=== PATIENT | female | born 1960 | race Caucasian/White ===

== ENCOUNTER → 2016-03-13 | Day surgery (SDC) | payer BC ==
[2016-03-06 11:47] VITALS: Ht 154.9 cm; Wt 54.5 kg
[~2016-03-13] VITALS: Ht 154.9 cm; Wt 54.5 kg
[~2016-03-13] MED LIST: AMOX875T PO; ATROPINE SULFATE 0.1 MG/ML 5ML SYR IV PRN; DEXAMETHASONE SOD INJ 4 MG/ML VIAL ONE; EpHEDrine SULFATE INJ 50 MG/ML AMP IV PRN; FENTANYL CITRATE INJ 50 MCG/1 ML 2 ML VIAL IV PRN; FENTANYL CITRATE INJ 50 MCG/1 ML 2 ML VIAL ONE; FERRIC SUBSULFATE 8 GM VIAL ONE; FLUMAZENIL 0.1 MG/1 ML 10 ML VIAL IV PRN; HYDROmorphone INJ 2 MG/ML SYR/VIAL IV PRN; IBUP-103 PO; IBUPROFEN 600 MG TAB PO PRN; KETO0.5S33 OPB; KETOROLAC TROMETHAMINE 30 MG/ML VIAL IV. PRN; KETOROLAC TROMETHAMINE 30 MG/ML VIAL ONE; LABETALOL HCL IV 5 MG/ML 20ML IV PRN; LACTATED RINGER'S 1000ML 1,000 ML IV SCH; LIDOCAINE HCL 2% 2 ML VIAL (20MG/ML) ONE; MEPERIDINE HCL 25 MG/ML CARP IV PRN; MIDAZOLAM HCL 1 MG/ML 2ML VIAL ONE; MoRPHine SULFATE 2 MG/ML CARP IV PRN; MoRPHine SULFATE 4 MG/ML 1 ML CARP\\VIAL IV PRN; NALOXONE HCL 0.4 MG/1 ML VIAL/CARP IV PRN; ONDANSETRON INJ 2 MG/ML 2 ML VIAL IV PRN; ONDANSETRON INJ 2 MG/ML 2 ML VIAL ONE; OXYC-57 PO; OXYCODONE/ACETAMINOPHEN 5-325 TAB PO PRN; PHENYLEPHRINE 100MCG/ML 5ML SYR IV PRN; POVIDONE-IODINE OP SOLN 30 ML BTL ONE; PRED1SUS3 OPB; PROPOFOL IV EMULSION 10 MG/ML 20 ML VIAL IV ONE; SERT-234 PO; SODIUM CHLORIDE 0.9% 1000ML 1,000 ML IV SCH
--- NOTE | 2016-03-13 11:49 | History & Physical Bridge - [place] ---
H&P Re-Evaluation Bridge Note: I have examined the patient, reviewed the History & Physical and in the interval since the performance of the History & Physical I have noted the following changes of clinical significance: No changes noted
--- NOTE | 2016-03-13 12:29 | [facility] Post Operative Brief Note ---
Immediate Operative Summary Operative Date Mar 13, 2016. Pre-Operative Diagnosis Atypical Squamous Cells of Undetermined Significance; SILVIA I, High Risk HPV Post-Operative Diagnosis same Procedure(s) Performed Cold Knife Cone Biopsy Surgeon Dr. Edna Multani Concrete Batcher Surgeon(s) 0 Estimated Blood Loss 25CC Findings nl appearing cx with TZ within the os. Specimens A. Cervical Cone Biopsy--suture @ 12:00 Drains none Anesthesia lma Complication(s) None Disposition Recovery Room / PACU
--- NOTE | 2016-03-13 12:32 | Discharge Instructions ---
Discharge Instructions Visit Reason for Visit: Atypical Squamous Cells Of Undetermined Significan Discharge Discharge Diagnosis / Problem: s/p cold knife conization of the cervix Discharge Goals Goal(s): Specific goals Activity Recommendations Activity Limitations: per Instructions/Follow-up section Anesthesia . Post Anesthesia Instructions: If you have had General Anesthesia or IV Sedation: * Do not drive today. * Resume driving when surgeon permits. * Do not make important decisions or sign legal documents today. * Call surgeon for: 1. Temperature elevations greater than 101 degrees F. 2. Uncontrollable pain. 3. Excessive bleeding. 4. Persistent nausea and vomiting. 5. Medication intolerance (nausea, vomiting or rash). * For nausea and vomiting use only clear liquids such as: tea, soda, bouillon until nausea subsides, then gradually increase diet as tolerated. * If you have any concerns or questions, call your surgeon's office. If physician is unavailable and it is an emergency, call 911 or go to the nearest emergency room. . Instructions / Follow-Up Instructions / Follow-Up ACTIVITY RECOMMENDATIONS: * Avoid tampons, douching, hot tubs, pools, and intercourse for 4 weeks until cleared by MD. * May shower as usual. * No strenuous activity for 1 week. After 1 week, you may do anything you feel like doing (driving and sports are okay). SPECIAL CARE INSTRUCTIONS: Special Diet: * Mild nausea may occur in the immediate post-operative period. * Take clear liquids such as tea, cola or bouillon until all nausea has subsided; you may then resume your normal diet. Special Care: * Light bleeding and vaginal spotting can last from a few days to 3-4 weeks. Call your doctor if bleeding becomes heavier than the heaviest part of your period. * Check your temperature twice a day for one week. If it goes above 100.4 degrees Fahrenheit (38.0 Celsius), notify your doctor. * Call your doctor's office for an appointment for 4 weeks after your surgery. FOLLOW-UP VISIT: Call your doctor's office for an appointment for 4 weeks after your surgery. Diet Recommendations Recommended Home Diet: no limitations, resume previous diet Procedures Procedures Performed: Cold Knife Cone Biopsy Pending Studies Studies pending at discharge: no Medical Emergencies . Who to Call and When: Medical Emergencies: If at any time you feel your situation is an emergency, please call 911 immediately. . Non-Emergent Contact Non-Emergency issues call your: Insulation Board Head Saw Operator . . "Provider Documentation" section prepared by Elizabeth Multani. PA Drug Monitoring Program Search Results: patient reviewed within database
--- NOTE | 2016-03-13 12:36 | Medical Student: [facility] ---
Immediate Operative Summary Operative Date Mar 13, 2016. 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 Surgeon Dr. Multani Slat Twister Surgeon(s) None Estimated Blood Loss 25 mL Findings Cervix visualized with Transformation Zone within os. Specimens Conal excision of cervix including internal and external os. Suture at 12:00. Drains None Anesthesia General Complication(s) None Disposition Recovery Room / PACU
--- NOTE | 2016-03-13 12:39 | Medical Student: [facility] ---
Immediate Operative Summary Operative Date Mar 13, 2016. Pre-Operative Diagnosis Persistent SILVIA I with high-risk HPV, serotypes 18 and 45 Post-Operative Diagnosis Same Procedure(s) Performed Cold knife cervical conization Surgeon Elizabeth Multani MD Public Service Officer Surgeon(s) None Estimated Blood Loss 25mL Findings Normal-appearing cervix Migration of transformation zone to the endocervix Fluids (cc crystalloids) 700mL normal saline Specimens Cervical cone biopsy with suture at 12 o'clock Drains none Anesthesia General anesthesia via laryngeal mask intubation Complication(s) None Disposition Recovery Room / PACU
--- NOTE | 2016-03-13 13:05 | OPERATIVE REPORT ---
DATE OF OPERATION: 03/13/2016 PREOPERATIVE DIAGNOSES: 1. Persistent SILVIA 1. 2. 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 POSTOPERATIVE DIAGNOSIS: Same. PROCEDURE: Cold knife conization. SURGEON: Dr. Multani. ANESTHESIA: General per laryngeal mask. ESTIMATED BLOOD LOSS: 25 mL. FLUIDS: 700 mL of IV fluid. URINE OUTPUT: Small amount of clear yellow urine drained from the bladder at the end of the procedure. INDICATIONS: The patient is postmenopausal a 55-year-old woman who I have been following for an abnormal Pap smear for over 5 years. It has been persistently ASCUS SILVIA 1 with positive HPV for 18/45. Approximately a year and a half ago she had a LEEP and has had persistently abnormal Paps since then and continues to have persistent HPV 18/45 positivity, presents today for cold knife conization for definitive treatment. FINDINGS: Normal vagina and normal external female genitalia. Normal Bartholin, urethra and Portia glands. The cervix appears grossly normal. The transformation zone is within the cervical os. COMPLICATIONS: None. DRAINS: None. DISPOSITION: To recovery room in stable condition. DESCRIPTION OF PROCEDURE: The patient was taken to the operating room where she was identified verbally and by bracelet. She was placed in dorsal supine position where general anesthesia was induced without difficulty. She was then placed in dorsal lithotomy position in [facility]-cane stirrups and prepped and draped in normal sterile fashion. Timeout was held identifying correct patient, procedure and positioning. The bladder was drained of urine and exam under anesthesia revealed a small anteverted uterus, no adnexal mass was appreciated. A weighted speculum was placed in the posterior vagina. A Mirza retractor was placed in the anterior vagina. Then using a right angle 15 blade, a cone-shaped portion of the cervix was removed. A silk suture was placed at 12 o'clock to serve as a means for identification and orientation. Bleeding edges were attended to with Bovie electrocautery and then using a 3-0 Vicryl, the cervix was circumferentially sewed together using a running interrupted suture. This was tied at 12 o'clock. There was some bleeding at the base that was attended to with Bovie electrocautery, some aspirin BILINGUAL CUSTOMER SERVICE was placed into the space and hemostasis was noted to be excellent. The procedure was thus terminated. All sponge, lap and needle counts were correct x2. The patient tolerated the procedure well and was taken to the recovery room in stable condition. I attest to the content of the Intraoperative Record and any orders documented therein. Any exceptio ns are noted below.
[2016-03-13 13:13] VITALS: BP 151/77; PULSE 61; TEMP 36.6; O2SAT 100
--- NOTE | 2016-03-13 13:16 | Anesthesia Progress Nt - [facility] ---
Anesthesia Post Op Note Date & Time Mar 13, 2016 at 13:15 Vital Signs Pain Intensity: 0 Vital Signs Past 12 Hours Date Time Temp Pulse Resp B/P Pulse Ox O2 Delivery O2 Flow Rate FiO2 03/13/16 13:13 36.6 61 16 151/77 100 Room Air 03/13/16 12:55 53 14 03/13/16 12:55 36.8 03/13/16 12:55 53 14 100 03/13/16 12:54 131/89 03/13/16 12:50 56 12 03/13/16 12:50 55 12 139/63 100 03/13/16 12:45 52 21 100 03/13/16 12:45 53 21 03/13/16 12:44 129/109 03/13/16 12:40 46 14 100 03/13/16 12:40 46 14 03/13/16 12:39 128/88 03/13/16 12:35 56 14 03/13/16 12:35 56 14 100 03/13/16 12:34 36.4 62 14 136/96 100 Diffusion Mask 03/13/16 11:16 37.2 64 16 137/87 100 Room Air Notes Mental Status: alert / awake / arousable, participated in evaluation Pt Amnestic to Procedure: Yes Nausea / Vomiting: adequately controlled Pain: adequately controlled Airway Patency, RR, SpO2: stable & adequate BP & HR: stable & adequate Hydration State: stable & adequate Anesthetic Complications: no major complications apparent
== END | disposition home or self-care (01) ==
LOC: X.SURG 11:05
PROVIDERS: ATTEND Obstetrics & Gynecology
DX: N87.0 Mild cervical dysplasia (principal); A63.0 Anogenital (venereal) warts; N95.2 Postmenopausal atrophic vaginitis; M35.00 Sjogren syndrome, unspecified; H26.9 Unspecified cataract; F32.9 Major depressive disorder, single episode, unspecified

== ENCOUNTER → 2016-05-22 | Outpatient (CLI) | payer BC ==
[~2016-05-22] MED LIST changes: -ATROPINE SULFATE 0.1 MG/ML 5ML SYR IV PRN; -DEXAMETHASONE SOD INJ 4 MG/ML VIAL ONE; -EpHEDrine SULFATE INJ 50 MG/ML AMP IV PRN; -FENTANYL CITRATE INJ 50 MCG/1 ML 2 ML VIAL IV PRN; -FENTANYL CITRATE INJ 50 MCG/1 ML 2 ML VIAL ONE; -FERRIC SUBSULFATE 8 GM VIAL ONE; -FLUMAZENIL 0.1 MG/1 ML 10 ML VIAL IV PRN; -HYDROmorphone INJ 2 MG/ML SYR/VIAL IV PRN; -IBUPROFEN 600 MG TAB PO PRN; -KETOROLAC TROMETHAMINE 30 MG/ML VIAL IV. PRN; -KETOROLAC TROMETHAMINE 30 MG/ML VIAL ONE; -LABETALOL HCL IV 5 MG/ML 20ML IV PRN; -LACTATED RINGER'S 1000ML 1,000 ML IV SCH; -LIDOCAINE HCL 2% 2 ML VIAL (20MG/ML) ONE; -MEPERIDINE HCL 25 MG/ML CARP IV PRN; -MIDAZOLAM HCL 1 MG/ML 2ML VIAL ONE; -MoRPHine SULFATE 2 MG/ML CARP IV PRN; -MoRPHine SULFATE 4 MG/ML 1 ML CARP\\VIAL IV PRN; -NALOXONE HCL 0.4 MG/1 ML VIAL/CARP IV PRN; -ONDANSETRON INJ 2 MG/ML 2 ML VIAL IV PRN; -ONDANSETRON INJ 2 MG/ML 2 ML VIAL ONE; -OXYCODONE/ACETAMINOPHEN 5-325 TAB PO PRN; -PHENYLEPHRINE 100MCG/ML 5ML SYR IV PRN; -POVIDONE-IODINE OP SOLN 30 ML BTL ONE; -PROPOFOL IV EMULSION 10 MG/ML 20 ML VIAL IV ONE; -SODIUM CHLORIDE 0.9% 1000ML 1,000 ML IV SCH
[2016-05-22 16:27] LABS: URINE APPEARANCE CLEAR (CLEAR); URINE BILIRUBIN NEG (NEG); URINE COLOR YELLOW; URINE NITRITE NEG (NEG); URINE SPECIFIC GRAVITY 1.019 (1.000-1.030); UROBILINOGEN NEG (NEG)
[2016-05-22 16:33] LABS: MANUAL MICROSCOPIC REQUIRED? NO; REVIEW REQ? NO
== END | disposition home or self-care (01) ==
LOC: C.LABSPEC 16:12
PROVIDERS: ATTEND Physician Assistant
DX: R10.2 Pelvic and perineal pain (principal)

== ENCOUNTER 2016-05-23 10:28 | Inpatient (IN) | payer BC ==
[2016-05-23] VITALS (7 sets, daily range): BP systolic 99–120; BP diastolic 59–82; PULSE 51–84; TEMP 36.5–37.4; O2SAT 95–98; Ht 154.9 cm; Wt 55.7 kg
[~2016-05-23] VITALS: Ht 154.9 cm; Wt 55.7 kg
[~2016-05-23 10:28] MED LIST changes: -AMOX875T PO; -IBUP-103 PO
[2016-05-23] MEDS ORDERED: ONDANSETRON INJ 2 MG/ML 2 ML VIAL IV STA (10:51)
[2016-05-23] MEDS ORDERED: SODIUM CHLORIDE 0.9% 1000ML 1,000 ML IV STA (10:51)
--- NOTE | 2016-05-23 11:01 | EMERGENCY ROOM VISIT NOTE ---
History Report prepared by Flores: Kae Davey Under the Supervision of: Dr. Brandon Fang D.O. First contact with patient: 10:42 Chief Complaint: GROIN PAIN Stated Complaint: PAIN IN GRION AREA History of Present Illness The patient is a 56 year old female who presents to the Emergency Room with complaints of right lower quadrant abdominal pain that began yesterday. The patient states that she initially saw her bulk mail technician yesterday and had an ultrasound. She has not heard back with results. She was put on Amoxicillin yesterday in case she had an infection from a cone biopsy performed this past February. After appointment, she had a coughing fit and subsequently noticed a hard mass in her right pelvic area last evening. It has not changed since then. This morning, the patient went to [facility] [employer] and was referred to the ED. Currently, she complains of nausea and a decreased appetite. She has been dry heaving when she tries to eat over the past few days. She notes that she had flu like symptoms including fevers and chills last week which have improved. Denies vomiting, leg pain or swelling, or other complaints. Source of History: patient Onset: yesterday Position: abdomen (RLQ) Timing: other (persistent) Associated Symptoms: + nausea, No vomiting Note: Other symptoms: pelvic mass, decreased appetite Review of Systems See HPI for pertinent positives & negatives. A total of 10 systems reviewed and were otherwise negative. Past Medical & Surgical Medical Problems: (1) Incarcerated right inguinal hernia (2) Sicca syndrome Family History No pertinent family history stated. Social History Smoking Status: Never Smoker Marital Status: Occupation Status: employed Current/Historical Medications Scheduled Amoxicillin & Pot Clavulanate (Augmentin 875-125 mg), 1 TAB PO TID Sertraline (Zoloft), 100 MG PO QAM Allergies Coded Allergies: Procaine (Verified Allergy, Unknown, FINGER NAIL BEDS TURNED BLUE, 05/23/16 ) Physical Exam Vital Signs Date Time Temp Pulse Resp B/P Pulse Ox O2 Delivery O2 Flow Rate FiO2 05/23/16 15:34 37 71 16 126/85 98 Room Air 05/23/16 14:12 68 16 129/82 98 Room Air 05/23/16 13:36 82 05/23/16 12:17 72 18 127/82 94 Room Air 05/23/16 12:15 75 05/23/16 10:35 36.7 68 16 124/92 100 Room Air Physical Exam GENERAL: Patient is awake, alert, and in no acute distress. Patient is resting comfortably and showing no signs of anxiety EYES: The conjunctivae are clear. The pupils are round and reactive. EARS, NOSE, MOUTH AND THROAT: The nose is without any evidence of any deformity. Mucous membranes are moist tongue is midline NECK: The neck is nontender and supple. RESPIRATORY: Normal respiratory effort is noted there is no evidence of wheezing rhonchi or rales CARDIOVASCULAR: Regular rate and rhythm noted there no murmurs rubs or gallops normal S1 normal S2 GASTROINTESTINAL: The abdomen is soft. There was right lower quadrant tenderness to palpation. No guarding or rigidity noted. There was also a palpable mass in the right inguinal canal. It was not reducible. The mass was very tender. MUSCULOSKELETAL/EXTREMITIES: There is no evidence of gross deformity full range of motion is noted in the hips and shoulders SKIN: There is no obvious evidence of any rash. There are no petechiae, pallor or cyanosis noted. NEUROLOGIC: Patient is awake alert and oriented x3 Medical Decision & Procedures ER Provider Diagnostic Interpretation: Radiology results as stated below per my review and radiologist interpretation: ABDOMEN AND PELVIS CT WITHOUT CONTRAST CT DOSE: 399.96 mGycm HISTORY: Right lower quadrant pain right lower quad pain, right inguinal mass TECHNIQUE: Multiaxial CT images of the abdomen and pelvis were performed without contrast. COMPARISON STUDY: None. FINDINGS: Lung bases are clear. Liver spleen and pancreas are unremarkable. Kidneys negative for hydronephrosis. Bowel pattern is nonobstructive. Focal right inguinal hernia containing is short segment loop of bowel. This does not appear to be incarcerated. Several reactive nodes right to lesser extent left inguinal region measuring up to 9 mm. Bulky adenopathy is not appreciated. IMPRESSION: A focal right inguinal hernia accounting for the clinically palpable mass. 2. This appears to contain a short segment loop of bowel although there is no evidence for incarceration or obstruction. 3. Study is otherwise negative. Electronically signed by: Navdeep Tabares M.D. 05/23/2016 11:45 AM Dictated Date/Time: 05/23/2016 11:43 AM Laboratory Results 05/23/16 11:00 Red Blood Count 4.46, Mean Corpuscular Volume 91.9, Mean Corpuscular Hemoglobin 32.1, Mean Corpuscular Hemoglobin Concent 34.9, Mean Platelet Volume 10.6, Neutrophils (%) (Auto) 73.1, Lymphocytes (%) (Auto) 19.4, Monocytes (%) (Auto) 6.3, Eosinophils (%) (Auto) 0.9, Basophils (%) (Auto) 0.2, Neutrophils # (Auto) 6.16, Lymphocytes # (Auto) 1.64, Monocytes # (Auto) 0.53, Eosinophils # (Auto) 0.08, Basophils # (Auto) 0.02 05/23/16 11:00 Test 05/23/16 11:00 05/23/16 11:05 White Blood Count 8.44 K/uL (4.8-10.8) Red Blood Count 4.46 M/uL (4.2-5.4) Hemoglobin 14.3 g/dL (12.0-16.0) Hematocrit 41.0 % (37-47) Mean Corpuscular Volume 91.9 fL (80-100) Mean Corpuscular Hemoglobin 32.1 pg (25-34) Mean Corpuscular Hemoglobin Concent 34.9 g/dl (32-36) Platelet Count 228 K/uL (130-400) Mean Platelet Volume 10.6 fL (7.4-10.4) Neutrophils (%) (Auto) 73.1 % Lymphocytes (%) (Auto) 19.4 % Monocytes (%) (Auto) 6.3 % Eosinophils (%) (Auto) 0.9 % Basophils (%) (Auto) 0.2 % Neutrophils # (Auto) 6.16 K/uL (1.4-6.5) Lymphocytes # (Auto) 1.64 K/uL (1.2-3.4) Monocytes # (Auto) 0.53 K/uL (0.11-0.59) Eosinophils # (Auto) 0.08 K/uL (0-0.5) Basophils # (Auto) 0.02 K/uL (0-0.2) RDW Standard Deviation 46.3 fL (36.4-46.3) RDW Coefficient of Variation 13.7 % (11.5-14.5) Immature Granulocyte % (Auto) 0.1 % Immature Granulocyte # (Auto) 0.01 K/uL (0.00-0.02) Prothrombin Time 10.0 SECONDS (9.0-12.0) Prothromb Time International Ratio 0.9 (0.9-1.1) Activated Partial Thromboplast Time 25.5 SECONDS (21.0-31.0) Partial Thromboplastin Ratio 1.0 Anion Gap 8.0 mmol/L (3-11) Est Creatinine Clear Calc Drug Dose 61.6 ml/min Estimated GFR () 101.8 Estimated GFR (Non- 87.9 BUN/Creatinine Ratio 11.9 (10-20) Calcium Level 9.1 mg/dl (8.5-10.1) Total Bilirubin 0.6 mg/dl (0.2-1) Direct Bilirubin 0.2 mg/dl (0-0.2) Aspartate Amino Transf (AST/SGOT) 25 U/L (15-37) Alanine Aminotransferase (ALT/SGPT) 42 U/L (12-78) Alkaline Phosphatase 76 U/L (45-117) Total Protein 7.6 gm/dl (6.4-8.2) Albumin 4.0 gm/dl (3.4-5.0) Lipase 296 U/L (73-393) Human Chorionic Gonadotropin, Qual NEG (NEG) Urine Color DK YELLOW Urine Appearance CLEAR (CLEAR) Urine pH 5.5 (4.5-7.5) Urine Specific [place] 1.033 (1.000-1.030) Urine Protein NEG (NEG) Urine Glucose (UA) NEG (NEG) Urine Ketones 1+ (NEG) Urine Occult Blood NEG (NEG) Urine Nitrite NEG (NEG) Urine Bilirubin NEG (NEG) Urine Urobilinogen NEG (NEG) Urine Leukocyte Esterase NEG (NEG) Laboratory results per my review. Medications Administered Medications (Trade) Dose Ordered Sig/Chu Route Start Time Stop Time Status Last Admin Dose Admin Sodium Chloride (Nss 1000ml) 1,000 ml @ 999 mls/hr Q1H1M STAT IV 05/23/16 10:51 05/23/16 11:51 DC 05/23/16 11:08 999 MLS/HR Ondansetron HCl (Zofran Inj) 4 mg NOW STAT IV 05/23/16 10:51 05/23/16 10:52 DC 05/23/16 11:09 4 MG Ondansetron HCl (Zofran Inj) 4 mg Q4H PRN IV 05/23/16 13:30 4 13:29 05/23/16 14:11 4 MG Morphine Sulfate (MoRPHine SULFATE INJ) 4 mg Q1H PRN IV 05/23/16 13:30 06/06/16 13:29 05/23/16 14:11 4 MG ED Course 1046: The patient was evaluated in room A10. A complete history and physical examination were performed. 1051: Ordered Zofran Inj 4 mg IV, NSS 1000 ml @ 999 mls/hr IV. 1159: I reassessed the patient and updated her on results. 1201: I discussed the case with Sarah Munoz PA-C - General Surgery. The patient will be taken to the OR. 1205: Upon reevaluation, the patient is resting comfortably. I discussed results and treatment plan with the patient. She verbalizes agreement and understanding Medical Decision Prior records/ancillary studies reviewed. Triage Nursing notes reviewed. The patient's history was concerning for abdominal pain. Differential diagnosis: Etiologies such as appendicitis, diverticulitis, PUD, biliary pathology, UTI, pancreatitis, obstruction, mesenteric ischemia, aortic pathology, infections, inflammatory bowel disease, renal colic, as well as others were entertained. The patient is a 56-year-old female who presented to the emergency department for an evaluation of lower abdominal pain and swelling in her right groin. The patient was found have signs of an inguinal hernia on physical exam. I was not able to reduce this. The patient was evaluated by the on-call general surgical group. She was felt to be a good candidate for surgical management. The patient did not appear to have severe pain I do not feel this is strangulated at this time I just feel it is unable to be reduced. I discussed this with the general surgical group. They've evaluated the patient in the emergency department and feel that she may be a good candidate for surgical management today in the she spontaneously reduced. I discussed this plan with the patient and she was agreeable to this plan. The patient was treated with IV fluids and IV antiemetics. Consults Time Called: 1155 Consulting Physician: Sarah Munoz PA-C - General Surgery Returned Call: 1201 I discussed the case with her. Impression Primary Impression: Right inguinal hernia Additional Impression: Right lower quadrant abdominal pain Scribe Attestation The scribe's documentation has been prepared under my direction and personally reviewed by me in its entirety. I confirm that the note above accurately reflects all work, treatment, procedures, and medical decision making performed by me. Departure Information Dispostion Being Evaluated By Surgeon Referrals No Doctor, Assigned (PCP) Patient Instructions My [facility] Problem Qualifiers
[2016-05-23] MEDS ORDERED: AMOX875T PO (11:12)
[2016-05-23 11:17] LABS: URINE APPEARANCE CLEAR (CLEAR); URINE BILIRUBIN NEG (NEG); URINE COLOR DK YELLOW; URINE NITRITE NEG (NEG); URINE PH 5.5 (4.5-7.5); URINE SPECIFIC GRAVITY 1.033 (1.000-1.030); UROBILINOGEN NEG (NEG)
[2016-05-23 11:21] LABS: BASO % 0.2 %; BASO ABS # 0.02 K/uL (0-0.2); COMPLETE YES; EOS % 0.9 %; IG% 0.1 %; LYMPH % 19.4 %; LYMPH ABS # 1.64 K/uL (1.2-3.4); MEAN CELL VOLUME 91.9 fL (80-100); MEAN CORPUSCULAR HEMOGLOBIN 32.1 pg (25-34); MEAN CORPUSCULAR HGB CONC 34.9 g/dl (32-36); MEAN PLATELET VOLUME 10.6 fL (7.4-10.4); MONO % 6.3 %; NEUT % 73.1 %; PLATELET COUNT 228 K/uL (130-400); RED BLOOD COUNT 4.46 M/uL (4.2-5.4); WHITE BLOOD COUNT 8.44 K/uL (4.8-10.8)
[2016-05-23 11:22] LABS: MANUAL MICROSCOPIC REQUIRED? NO; REVIEW REQ? NO
[2016-05-23 11:26] LABS: INR 0.9 (0.9-1.1)
[2016-05-23 11:29] LABS: BUN/CREATININE RATIO 11.9 (10-20); CALCIUM 9.1 mg/dl (8.5-10.1); CREATININE 0.75 mg/dl (0.60-1.20); POTASSIUM 3.5 mmol/L (3.5-5.1)
[2016-05-23 11:42] LABS: PREG INTERNAL NEGATIVE QC NEG CLEAR BACKGROUND; PREG INTERNAL POSITIVE QC POS CONTROL LINE
--- NOTE | 2016-05-23 11:47 | DIAGNOSTIC IMAGING REPORT ---
ABDOMEN AND PELVIS CT WITHOUT CONTRAST CT DOSE: 399.96 mGycm HISTORY: Right lower quadrant pain right lower quad pain, right inguinal mass TECHNIQUE: Multiaxial CT images of the abdomen and pelvis were performed without contrast. COMPARISON STUDY: None. FINDINGS: Lung bases are clear. Liver spleen and pancreas are unremarkable. Kidneys negative for hydronephrosis. Bowel pattern is nonobstructive. Focal right inguinal hernia containing is short segment loop of bowel. This does not appear to be incarcerated. Several reactive nodes right to lesser extent left inguinal region measuring up to 9 mm. Bulky adenopathy is not appreciated. IMPRESSION: A focal right inguinal hernia accounting for the clinically palpable mass. 2. This appears to contain a short segment loop of bowel although there is no evidence for incarceration or obstruction. 3. Study is otherwise negative. Electronically signed by: Navdeep Tabares M.D. 05/23/2016 11:45 AM Dictated Date/Time: 05/23/2016 11:43 AM
--- NOTE | 2016-05-23 13:10 | History and Physical: Surg Cnt ---
History & Physical Date May 23, 2016. (Sarah Munoz ., MYRANDA) Chief Complaint Right Pelvic pain, lump (Sarah Munoz PA-C) History of Present Illness Yvette is a very pleasant 56 year-old female who presented to the emergency department this am with compaint of right groin pain and hard mass. Yvette states she just saw her Disability Manager yesterday and was started on Amoxicillin for possible cervical infection. Had a vaginal ultrasound and has not heard about results yet. Yvette also states she is getting over the flu and has been having coughing spells. States she returned to work yesterday after OBGYN appointment and had some coughing fits and when she got home noticed a mass in the right groin that was hard and painful. She went to urgent care this morning and advised her to come to the emergency department. Yvette denies of any history of hernias, denies of any abdominal surgery. Has had back and foot surgery. Otherwise healthy. Takes Zoloft. No other medications. Denies of any fever, chills, nausea, vomiting, vomiting blood, change in bowel habits, diarrhea, constipation, blood in stools, difficulty urinating, blood in urine, or abdominal pain. CT scan of abdomen and pelvis shows a right inguinal hernia with a small loop of bowel present. No evidence of incarceration on CT scan No leukocytosis, afebrile, vital signs stable. (Sarah Munoz ., MYRANDA) Past Medical/Surgical History Medical Problems: (1) Sicca syndrome (Sarah Munoz PA-C) Additional History Hepatic Disease: No Endocrine Disorder: No Kidney Disease: No Hypertension: No Heart Disease: No Bleeding Tendencies: No Infectious Diseases: No (Sarah Munoz PA-C) Allergies Coded Allergies: Procaine (Verified Allergy, Unknown, FINGER NAIL BEDS TURNED BLUE, 05/23/16 ) Home Medications Scheduled Amoxicillin & Pot Clavulanate (Augmentin 875-125 mg), 1 TAB PO TID Sertraline (Zoloft), 100 MG PO QAM Physical Examination Skin: warm/dry, no rash Eyes: normal inspection, sclerae normal Head: normocephalic, atraumatic Neck: trachea midline Respiratory/Chest: lungs clear, normal breath sounds, no respiratory distress Cardiovascular: regular rate, rhythm, no murmur Abdomen / GI: + pertinent finding (Right inguinal hernia present, lump on inpsecition. Hard lump on palpation and unable to reduce due to patients discomfort on multiple attempts by ER doctor and myself. NO overlying skin chagnes, erythema, or ecchymosis) Back: normal inspection Extremities: normal inspection Neurologic/Psych: alert, oriented x 3 Addiitonal Comments: ABDOMEN AND PELVIS CT WITHOUT CONTRAST CT DOSE: 399.96 mGycm HISTORY: Right lower quadrant pain right lower quad pain, right inguinal mass TECHNIQUE: Multiaxial CT images of the abdomen and pelvis were performed without contrast. COMPARISON STUDY: None. FINDINGS: Lung bases are clear. Liver spleen and pancreas are unremarkable. Kidneys negative for hydronephrosis. Bowel pattern is nonobstructive. Focal right inguinal hernia containing is short segment loop of bowel. This does not appear to be incarcerated. Several reactive nodes right to lesser extent left inguinal region measuring up to 9 mm. Bulky adenopathy is not appreciated. IMPRESSION: A focal right inguinal hernia accounting for the clinically palpable mass. 2. This appears to contain a short segment loop of bowel although there is no evidence for incarceration or obstruction. 3. Study is otherwise negative. (Sarah Munoz ., PA-C) Diagnosis Incarcerated Right Inguinal Hernia - Vital signs stable - no leukocytosis - not reducible on examination on multiple attempts - very painful on reducing (Sarah Munoz ., PA-C) Plan of Treatment Plan: Discussed with patient need for surgery given we are not able to reduce the hernia. Want to prevent any bowel strangulation since there is a loop of bowel present in the hernia. Discussed with patient the surgery and risks including bleeding, infection, injury to surrounding tissues, post op pain, nerve pain, post op seroma and hematoma Patient understands and consents to proceed Consent form signed. Patient discussed with Dr. Mcfarlane who will see and evaluate patient. (Sarah Munoz ., PA-C) I interviewed and examined this patient and I agree with the above note. She developed a bulge in the right inguinal area that is painfula and tender and CT shows small bowel loop in an inguinal hernia. It is not reducible. Will plan for surgical repair. (Navdeep Mcfarlane M.D.)
[2016-05-23] MEDS ORDERED: ONDANSETRON INJ 2 MG/ML 2 ML VIAL IV PRN ×2 (13:30→15:30)
[2016-05-23] MEDS ORDERED: MoRPHine SULFATE 2 MG/ML CARP IV PRN ×2 (13:30)
[2016-05-23] MEDS ORDERED: MoRPHine SULFATE 4 MG/ML 1 ML CARP\\VIAL IV PRN ×2 (13:30→17:00)
[2016-05-23] MEDS ORDERED: BUPIVACAINE 0.5 % 5 MG/1 ML MPF 30ML VIAL ONE (15:24)
[2016-05-23] MEDS ORDERED: NALOXONE HCL 0.4 MG/1 ML VIAL/CARP IV PRN (15:30)
[2016-05-23] MEDS ORDERED: ATROPINE SULFATE 0.1 MG/ML 5ML SYR IV PRN (15:30)
[2016-05-23] MEDS ORDERED: FENTANYL CITRATE INJ 50 MCG/1 ML 2 ML VIAL IV PRN (15:30)
[2016-05-23] MEDS ORDERED: PHENYLEPHRINE 100MCG/ML 5ML SYR IV PRN (15:30)
[2016-05-23] MEDS ORDERED: MEPERIDINE HCL 25 MG/ML CARP IV PRN (15:30)
[2016-05-23] MEDS ORDERED: EpHEDrine SULFATE INJ 50 MG/ML AMP IV PRN (15:30)
[2016-05-23] MEDS ORDERED: HYDROmorphone INJ 2 MG/ML SYR/VIAL IV PRN (15:30)
[2016-05-23] MEDS ORDERED: LABETALOL HCL IV 5 MG/ML 20ML IV PRN (15:30)
[2016-05-23] MEDS ORDERED: FLUMAZENIL 0.1 MG/1 ML 10 ML VIAL IV PRN (15:30)
[2016-05-23] MEDS ORDERED: CEFAZOLIN IV 2,000 MG/60 ML D5W IV ONE (15:34)
[2016-05-23] MEDS ORDERED: ROCURONIUM BROMID 50MG/5ML SYR ONE (15:53)
[2016-05-23] MEDS ORDERED: DEXAMETHASONE SOD INJ 4 MG/ML VIAL ONE (15:53)
[2016-05-23] MEDS ORDERED: PROPOFOL IV EMULSION 10 MG/ML 20 ML VIAL IV ONE (15:53)
[2016-05-23] MEDS ORDERED: LIDOCAINE HCL 2% 2 ML VIAL (20MG/ML) ONE (15:53)
[2016-05-23] MEDS ORDERED: ONDANSETRON INJ 2 MG/ML 2 ML VIAL ONE (15:53)
[2016-05-23] MEDS ORDERED: NEOSTIGMINE METHYLSULFATE 5 MG/5 ML SYR ONE (15:53)
[2016-05-23] MEDS ORDERED: GLYCOPYRROLATE INJ 0.2 MG/ML VIAL ONE (15:53)
[2016-05-23] MEDS ORDERED: FENTANYL CITRATE INJ 50 MCG/1 ML 2 ML VIAL ONE (15:54)
[2016-05-23] MEDS ORDERED: MIDAZOLAM HCL 1 MG/ML 2ML VIAL ONE (15:54)
[2016-05-23] MEDS ORDERED: EpHEDrine SULFATE 50MG/5ML SYR ONE (16:36)
[2016-05-23] MEDS ORDERED: ESMOLOL HCL 10 MG/ML 10 ML VIAL ONE (16:37)
[2016-05-23] MEDS ORDERED: KETOROLAC TROMETHAMINE 30 MG/ML VIAL ONE (16:41)
[2016-05-23] MEDS ORDERED: OXYCODONE/ACETAMINOPHEN 5-325 TAB PO PRN (17:00)
--- NOTE | 2016-05-23 17:04 | [facility] Post Operative Brief Note ---
Immediate Operative Summary Operative Date May 23, 2016. Pre-Operative Diagnosis Right incarcerated inguinal hernia Post-Operative Diagnosis Right incarcerated inguinal hernia Procedure(s) Performed Right Incarcerated Inguinal Hernia Repair Surgeon Dr. Mcfarlane Waterworks Supervisor Surgeon(s) Sarah Munoz PA-C Estimated Blood Loss 5ml Findings See dictation Specimens None per surgeon Drains None Anesthesia General Complication(s) None Disposition Recovery Room / PACU
--- NOTE | 2016-05-23 17:25 | Anesthesiology Progress Note ---
Anesthesia Post Op Note Date & Time May 23, 2016 at 17:25 Vital Signs Pain Intensity: 0 Vital Signs Past 12 Hours Date Time Temp Pulse Resp B/P Pulse Ox O2 Delivery O2 Flow Rate FiO2 05/23/16 17:14 36.4 92 16 119/72 100 Mask 10 05/23/16 15:34 37 71 16 126/85 98 Room Air 05/23/16 14:12 68 16 129/82 98 Room Air 05/23/16 13:36 82 05/23/16 12:17 72 18 127/82 94 Room Air 05/23/16 12:15 75 05/23/16 10:35 36.7 68 16 124/92 100 Room Air Notes Mental Status: alert / awake / arousable, participated in evaluation Pt Amnestic to Procedure: Yes Nausea / Vomiting: adequately controlled Pain: adequately controlled Airway Patency, RR, SpO2: stable & adequate BP & HR: stable & adequate Hydration State: stable & adequate Anesthetic Complications: no major complications apparent
[2016-05-23] MEDS: SODIUM CHLORIDE 0.9% 1000ML 1,000 ML IV SCH (19:15)
--- NOTE | 2016-05-24 02:24 | OPERATIVE REPORT ---
DATE OF OPERATION: 05/23/2016 PREOPERATIVE DIAGNOSIS: Incarcerated right inguinal hernia. POSTOPERATIVE DIAGNOSIS: Incarcerated right femoral hernia. PROCEDURE: Repair of incarcerated right inguinal hernia. SURGEON: Navdeep Mcfarlane MD RECREATIONAL SPECIALIST: Sarah Maria PA-C FINDINGS: The inguinal canal had no hernia within it. The defect was beneath the inguinal ligament near the femoral space. There was protruding peritoneum that was thickened and there were contents within that after I widened the femoral opening reduced easily. There was some preperitoneal fat that was protruding as well. I could not visualize any bowel within the hernia sac. TECHNIQUE: The patient was given a general anesthetic and the area was prepped and draped in usual sterile fashion. Right inguinal incision was made, carried down through the subcutaneous tissue to the fascia. It appeared as though this may have been coming through the external ring. I made a small incision in the left external oblique fascia and placed my finger into the canal. It was clear then this was a femoral hernia. That opening in the external oblique fascia was closed with a running 2-0 Vicryl. The preperitoneal fat and hernia sac were then away from the surrounding tissues using blunt cautery dissection where appropriate. I was then able to identify the circumference of the hernia defect. The preperitoneal fat was then away from the hernia sac and at the base was clamped, and divided and ligated with 2-0 Vicryl ties. The hernia sac was then opened. There were no contents within the hernia sac. Part that was removed and then the peritoneal sac was closed using a running 2-0 Vicryl. This was all placed back into its anatomic position. A mesh plug was then cut to size and placed it through the opening in the preperitoneal space. Some of the leaflets had to be removed. The mesh edges were then approximated to the edges of the opening using interrupted 0 PDS. The area was inspected for bleeding and none was seen. The deep subcutaneous tissue was closed with running 2-0 Vicryl. The superficial subcutaneous tissue was closed with running 3-0 Vicryl and the skin was closed with 4-0 Monocryl in a running subcuticular fashion. Skin was anesthetized with Marcaine. Estimated blood loss was 5 mL. Sponge, needle and instrument counts were correct prior to closure. The patient tolerated the surgical procedure without complication and was transferred to recovery. I attest to the content of the Intraoperative Record and any orders documented therein. Any exceptio ns are noted below.
[2016-05-24 04:03] VITALS: BP 105/67; PULSE 71; TEMP 37.3; O2SAT 98
[2016-05-24] MEDS: SODIUM CHLORIDE 0.9% 1000ML 1,000 ML IV SCH (04:29)
[2016-05-24 07:44] VITALS: BP 113/73; PULSE 83; TEMP 37.6; O2SAT 96
--- NOTE | 2016-05-24 08:31 | Anesthesiology Progress Note ---
Anesthesia Post Op Note Date & Time May 24, 2016 at 08:30 Vital Signs Vital Signs Past 12 Hours Date Time Temp Pulse Resp B/P Pulse Ox O2 Delivery O2 Flow Rate FiO2 05/24/16 07:44 37.6 83 18 113/73 96 Room Air 05/24/16 04:03 37.3 71 16 105/67 98 Room Air 05/23/16 23:15 Room Air 05/23/16 23:10 36.5 84 16 99/61 97 Room Air 05/23/16 21:08 37.3 77 16 108/59 96 Room Air Notes Mental Status: alert / awake / arousable, participated in evaluation Pt Amnestic to Procedure: Yes Nausea / Vomiting: adequately controlled Pain: adequately controlled Airway Patency, RR, SpO2: stable & adequate BP & HR: stable & adequate Hydration State: stable & adequate Anesthetic Complications: no major complications apparent
[2016-05-24] MEDS ORDERED: IBUP-103 PO (08:38)
[2016-05-24] MEDS ORDERED: OXYC-57 PO (08:38)
--- NOTE | 2016-05-24 08:40 | Surgery Progress Note ---
Surgery Progress Note Date of Service May 24, 2016. Subjective Post OP Day: 1 + diet (tolerated regular diet), + feeling well, + flatus, No bowel movement, No nausea, No vomiting Incisional pain only Objective Vital Signs: Date Time Temp Pulse Resp B/P Pulse Ox O2 Delivery O2 Flow Rate FiO2 05/24/16 07:44 37.6 83 18 113/73 96 Room Air 05/24/16 04:03 37.3 71 16 105/67 98 Room Air 05/23/16 23:15 Room Air 05/23/16 23:10 36.5 84 16 99/61 97 Room Air 05/23/16 21:08 37.3 77 16 108/59 96 Room Air 05/23/16 20:13 36.8 77 16 120/82 95 Room Air 05/23/16 19:09 36.9 66 18 108/70 96 Room Air 05/23/16 18:41 36.8 51 16 108/72 97 Room Air 05/23/16 18:30 Room Air 05/23/16 18:30 Room Air 05/23/16 18:30 Room Air 05/23/16 18:10 37.4 72 16 101/64 98 Room Air 05/23/16 17:59 36.8 05/23/16 17:46 61 18 97 05/23/16 17:46 61 18 05/23/16 17:45 111/69 05/23/16 17:41 65 16 95 05/23/16 17:41 65 16 05/23/16 17:40 111/67 05/23/16 17:39 61 16 05/23/16 17:39 60 16 98 05/23/16 17:35 123/65 05/23/16 17:34 65 14 05/23/16 17:34 66 14 100 05/23/16 17:30 112/66 05/23/16 17:29 61 13 05/23/16 17:29 61 13 100 05/23/16 17:25 112/70 05/23/16 17:24 64 16 99 05/23/16 17:24 66 16 05/23/16 17:20 113/71 05/23/16 17:19 80 17 100 05/23/16 17:19 79 17 05/23/16 17:15 124/66 05/23/16 17:14 36.4 92 16 119/72 100 Mask 10 05/23/16 17:14 90 16 119/72 100 05/23/16 17:14 90 16 05/23/16 15:34 37 71 16 126/85 98 Room Air 05/23/16 14:12 68 16 129/82 98 Room Air 05/23/16 13:36 82 05/23/16 12:17 72 18 127/82 94 Room Air 05/23/16 12:15 75 05/23/16 10:35 36.7 68 16 124/92 100 Room Air Abdomen: normal bowel sounds, non distended, soft, + tenderness (Incisional only) Incision(s): clean, dry, intact, no erythema, no drainage Laboratory Results: Results Past 24 Hours Test 05/23/16 11:00 05/23/16 11:05 Range/Units White Blood Count 8.44 4.8-10.8 K/uL Red Blood Count 4.46 4.2-5.4 M/uL Hemoglobin 14.3 12.0-16.0 g/dL Hematocrit 41.0 37-47 % Mean Corpuscular Volume 91.9 80-100 fL Mean Corpuscular Hemoglobin 32.1 25-34 pg Mean Corpuscular Hemoglobin Concent 34.9 32-36 g/dl Platelet Count 228 130-400 K/uL Mean Platelet Volume 10.6 7.4-10.4 fL Neutrophils (%) (Auto) 73.1 % Lymphocytes (%) (Auto) 19.4 % Monocytes (%) (Auto) 6.3 % Eosinophils (%) (Auto) 0.9 % Basophils (%) (Auto) 0.2 % Neutrophils # (Auto) 6.16 1.4-6.5 K/uL Lymphocytes # (Auto) 1.64 1.2-3.4 K/uL Monocytes # (Auto) 0.53 0.11-0.59 K/uL Eosinophils # (Auto) 0.08 0-0.5 K/uL Basophils # (Auto) 0.02 0-0.2 K/uL RDW Standard Deviation 46.3 36.4-46.3 fL RDW Coefficient of Variation 13.7 11.5-14.5 % Immature Granulocyte % (Auto) 0.1 % Immature Granulocyte # (Auto) 0.01 0.00-0.02 K/uL Prothrombin Time 10.0 9.0-12.0 SECONDS Prothromb Time International Ratio 0.9 0.9-1.1 Activated Partial Thromboplast Time 25.5 21.0-31.0 SECONDS Partial Thromboplastin Ratio 1.0 Sodium Level 142 136-145 mmol/L Potassium Level 3.5 3.5-5.1 mmol/L Chloride Level 107 98-107 mmol/L Carbon Dioxide Level 27 21-32 mmol/L Anion Gap 8.0 3-11 mmol/L Blood Urea Nitrogen 9 7-18 mg/dl Creatinine 0.75 0.60-1.20 mg/dl Est Creatinine Clear Calc Drug Dose 61.6 ml/min Estimated GFR () 101.8 Estimated GFR (Non- 87.9 BUN/Creatinine Ratio 11.9 10-20 Random Glucose 99 70-99 mg/dl Calcium Level 9.1 8.5-10.1 mg/dl Total Bilirubin 0.6 0.2-1 mg/dl Direct Bilirubin 0.2 0-0.2 mg/dl Aspartate Amino Transf (AST/SGOT) 25 15-37 U/L Alanine Aminotransferase (ALT/SGPT) 42 12-78 U/L Alkaline Phosphatase 76 45-117 U/L Total Protein 7.6 6.4-8.2 gm/dl Albumin 4.0 3.4-5.0 gm/dl Lipase 296 73-393 U/L Human Chorionic Gonadotropin, Qual NEG NEG Urine Color DK YELLOW Urine Appearance CLEAR CLEAR Urine pH 5.5 4.5-7.5 Urine Specific [place] 1.033 1.000-1.030 Urine Protein NEG NEG Urine Glucose (UA) NEG NEG Urine Ketones 1+ NEG Urine Occult Blood NEG NEG Urine Nitrite NEG NEG Urine Bilirubin NEG NEG Urine Urobilinogen NEG NEG Urine Leukocyte Esterase NEG NEG Assessment & Plan S/p repair of incarcerated right femoral hernia. Doing well Bowel function good D/C to home Instructions discussed
--- NOTE | 2016-05-24 08:41 | Discharge Instructions ---
Discharge Instructions Date of Service May 24, 2016. Admission Reason for Admission: Incarcerated Right Inguinal Hernia Discharge Discharge Diagnosis / Problem: Right incarcerated Femoral Hernia Discharge Goals Goal(s): Decrease discomfort Activity Recommendations Activity Limitations: as noted below No heavy lifting over 20 pounds for 6 weeks and no strenuous activity for 6 weeks Walking is encouraged to prevent blood clots You may shower tomorrow morning Do not submerge incision underwater for 2 weeks You may take steri strips off of the incision in one week, if they fall off prior that is fine No driving while taking Narcotic pain medication, no driving for 2 weeks or until you are pain free whichever comes first. . Instructions / Follow-Up Instructions / Follow-Up Follow-up in surgical office in 2 weeks, please call [phone] to make an appointment Current Hospital Diet Patient's current hospital diet: Regular Diet Discharge Diet Recommended Diet: Regular Diet Procedures Procedures Performed: Right Incarcerated Inguinal Hernia Repair Pending Studies Studies pending at discharge: no Medical Emergencies . Who to Call and When: Medical Emergencies: If at any time you feel your situation is an emergency, please call 911 immediately. . Non-Emergent Contact Non-Emergency issues call your: Primary Care Provider, Surgeon Call Non-Emergent contact if: you have a fever, temperature is above 101.5, your pain is not controlled, your pain is worsening, wound has increased drainage, wound has increased redness, wound has increased pain . "Provider Documentation" section prepared by Sarah Munoz. VTE Core Measure Inpt VTE Proph given/why not?: SCD's
--- NOTE | 2016-05-24 08:44 | Surgery Progress Note ---
Surgery Progress Note Date of Service May 24, 2016. Subjective Post OP Day: 1 Feeling good, + incisional pain NO nausea vomiting fever chills or abdominal pain passing flatus tolerated regular diet last evening Objective Vital Signs: Date Time Temp Pulse Resp B/P Pulse Ox O2 Delivery O2 Flow Rate FiO2 05/24/16 07:44 37.6 83 18 113/73 96 Room Air 05/24/16 04:03 37.3 71 16 105/67 98 Room Air 05/23/16 23:15 Room Air 05/23/16 23:10 36.5 84 16 99/61 97 Room Air 05/23/16 21:08 37.3 77 16 108/59 96 Room Air 05/23/16 20:13 36.8 77 16 120/82 95 Room Air 05/23/16 19:09 36.9 66 18 108/70 96 Room Air 05/23/16 18:41 36.8 51 16 108/72 97 Room Air 05/23/16 18:30 Room Air 05/23/16 18:30 Room Air 05/23/16 18:30 Room Air 05/23/16 18:10 37.4 72 16 101/64 98 Room Air 05/23/16 17:59 36.8 05/23/16 17:46 61 18 97 05/23/16 17:46 61 18 05/23/16 17:45 111/69 05/23/16 17:41 65 16 95 05/23/16 17:41 65 16 05/23/16 17:40 111/67 05/23/16 17:39 61 16 05/23/16 17:39 60 16 98 05/23/16 17:35 123/65 05/23/16 17:34 65 14 05/23/16 17:34 66 14 100 05/23/16 17:30 112/66 05/23/16 17:29 61 13 05/23/16 17:29 61 13 100 05/23/16 17:25 112/70 05/23/16 17:24 64 16 99 05/23/16 17:24 66 16 05/23/16 17:20 113/71 05/23/16 17:19 80 17 100 05/23/16 17:19 79 17 05/23/16 17:15 124/66 05/23/16 17:14 36.4 92 16 119/72 100 Mask 10 3/30/17 17:14 90 16 119/72 100 05/23/16 17:14 90 16 05/23/16 15:34 37 71 16 126/85 98 Room Air 05/23/16 14:12 68 16 129/82 98 Room Air 05/23/16 13:36 82 05/23/16 12:17 72 18 127/82 94 Room Air 05/23/16 12:15 75 05/23/16 10:35 36.7 68 16 124/92 100 Room Air General Appearance: WD/WN, no apparent distress Head: normocephalic, atraumatic Abdomen: non tender, non distended, soft, + pertinent finding (Tenderness on palpation of the right groin incision, appropriate post op, C/D/I) Laboratory Results: Results Past 24 Hours Test 05/23/16 11:00 05/23/16 11:05 Range/Units White Blood Count 8.44 4.8-10.8 K/uL Red Blood Count 4.46 4.2-5.4 M/uL Hemoglobin 14.3 12.0-16.0 g/dL Hematocrit 41.0 37-47 % Mean Corpuscular Volume 91.9 80-100 fL Mean Corpuscular Hemoglobin 32.1 25-34 pg Mean Corpuscular Hemoglobin Concent 34.9 32-36 g/dl Platelet Count 228 130-400 K/uL Mean Platelet Volume 10.6 7.4-10.4 fL Neutrophils (%) (Auto) 73.1 % Lymphocytes (%) (Auto) 19.4 % Monocytes (%) (Auto) 6.3 % Eosinophils (%) (Auto) 0.9 % Basophils (%) (Auto) 0.2 % Neutrophils # (Auto) 6.16 1.4-6.5 K/uL Lymphocytes # (Auto) 1.64 1.2-3.4 K/uL Monocytes # (Auto) 0.53 0.11-0.59 K/uL Eosinophils # (Auto) 0.08 0-0.5 K/uL Basophils # (Auto) 0.02 0-0.2 K/uL RDW Standard Deviation 46.3 36.4-46.3 fL RDW Coefficient of Variation 13.7 11.5-14.5 % Immature Granulocyte % (Auto) 0.1 % Immature Granulocyte # (Auto) 0.01 0.00-0.02 K/uL Prothrombin Time 10.0 9.0-12.0 SECONDS Prothromb Time International Ratio 0.9 0.9-1.1 Activated Partial Thromboplast Time 25.5 21.0-31.0 SECONDS Partial Thromboplastin Ratio 1.0 Sodium Level 142 136-145 mmol/L Potassium Level 3.5 3.5-5.1 mmol/L Chloride Level 107 98-107 mmol/L Carbon Dioxide Level 27 21-32 mmol/L Anion Gap 8.0 3-11 mmol/L Blood Urea Nitrogen 9 7-18 mg/dl Creatinine 0.75 0.60-1.20 mg/dl Est Creatinine Clear Calc Drug Dose 61.6 ml/min Estimated GFR () 101.8 Estimated GFR (Non- 87.9 BUN/Creatinine Ratio 11.9 10-20 Random Glucose 99 70-99 mg/dl Calcium Level 9.1 8.5-10.1 mg/dl Total Bilirubin 0.6 0.2-1 mg/dl Direct Bilirubin 0.2 0-0.2 mg/dl Aspartate Amino Transf (AST/SGOT) 25 15-37 U/L Alanine Aminotransferase (ALT/SGPT) 42 12-78 U/L Alkaline Phosphatase 76 45-117 U/L Total Protein 7.6 6.4-8.2 gm/dl Albumin 4.0 3.4-5.0 gm/dl Lipase 296 73-393 U/L Human Chorionic Gonadotropin, Qual NEG NEG Urine Color DK YELLOW Urine Appearance CLEAR CLEAR Urine pH 5.5 4.5-7.5 Urine Specific [place] 1.033 1.000-1.030 Urine Protein NEG NEG Urine Glucose (UA) NEG NEG Urine Ketones 1+ NEG Urine Occult Blood NEG NEG Urine Nitrite NEG NEG Urine Bilirubin NEG NEG Urine Urobilinogen NEG NEG Urine Leukocyte Esterase NEG NEG Assessment & Plan POD # 1 s/p Repair of right incarcerated femoral hernia with mesh -vital signs stable - tolerating regular diet - pain controlled - + flatus Plan: Plan for discharge discharge instructions given Follow-up in 2 weeks Rx for Percocet and Ibuprofen prn pain given Dr. Mcfarlane has seen and examined patient, agrees with above stated findings and treatment plan.
[2016-05-24 09:42] VITALS: BP 113/73; PULSE 83; TEMP 37.6; O2SAT 96
--- NOTE | 2016-05-24 11:40 | Discharge Summary ---
Discharge Summary Dates Admission Date / Time: May 23, 2016 at 13:26 Discharge Date: May 24, 2016 Dispostion / Condition Discharge Disposition: Home Condition at Discharge: Good Principal Diagnosis (1) Femoral hernia of right side Problem List (1) Femoral hernia of right side (2) Sicca syndrome Consultations / Procedures Consultations: None Procedures: Open Right femoral hernia repair with mesh Pending Studies / Follow-Up None Medication Reconciliation New Medications: Ibuprofen Tab (Advil) 200 Mg Tab 400 MG PO TID PRN for Pain, #30 TAB Oxycodone/Acetaminophen 5MG/325MG (Percocet 5MG/325MG) Tab 1 TABLET PO Q4H PRN for Pain, #30 TAB Continued Medications: Amoxicillin & Pot Clavulanate (Augmentin 875-125 mg) 1 Tab Tab 1 TAB PO TID Sertraline (Zoloft) 100 Mg Tab 100 MG PO QAM, TAB Admission HPI Per the Admitting provider: Yvette presented to emergency department on 05/23/2016 with complaint of right pelvic pain and mass. She saw OBGYN day prior and was placed on amoxicillin for possible cervical infection. She was recently getting over the respiratory flu when she had a coughing spell and noticed when she got home from work she had right pelvic pain and a hard pelvic mass. She went to urgent care the next morning and was advised to go to the emergency room for further evaluation and treatment. CT scan showed right inguinal hernia containing loop of bowel however no evidence of incarceration. She had no leukocytosis and vitals stable however hernia was unable to be reduced on exam with multiple attempts and very painful for patient. Hospital Course (1) Femoral hernia of right side Patient was admitted to the [facility]/Surg floor from the emergency department prior to surgery. Patient was informed of right inguinal hernia repair with mesh and informed consent obtained. Patient tolerated procedure well and was found to have a right femoral hernia with incarcerated omentum and preperitoneal fat. She was [facility]. She tolerated regular diet evening of operation, pain controlled and passed flatus. No fever and vitals were stable post op. She was discharged home on POD # 1. Overall hospital course was uneventful. Total Time Total Time Spent (min): 15 Discharge Instructions as given to patient Copies To Primary Care Provider: No Doctor, Assigned.
== END 2016-05-24 10:30 | disposition home or self-care (01) | DRG 355 ==
LOC: ENRESERVDT → ENRESERVTM → C.EDB 10:30 → C.MSN 13:26
PROVIDERS: ADMIT Surgery; ATTEND Surgery
PROC: 0WUF0JZ Supplement Abdominal Wall with Synthetic Substitute, Open Approach (ICD-10-PCS; principal; 2016-05-23 15:30)
DX: K41.30 Unilateral femoral hernia, with obstruction, without gangrene, not specified as recurrent (principal); M35.00 Sjogren syndrome, unspecified; R10.2 Pelvic and perineal pain

== ENCOUNTER → 2016-08-15 | Outpatient (CLI) | payer BC ==
[~2016-08-15] MED LIST changes: +AMOX875T PO; +IBUP-103 PO; -KETO0.5S33 OPB; -PRED1SUS3 OPB
== END | disposition home or self-care (01) ==
LOC: C.PAPS 13:50
PROVIDERS: ATTEND Physician Assistant
DX: Z01.411 Encounter for gynecological examination (general) (routine) with abnormal findings (principal)

== ENCOUNTER → 2017-01-28 | Outpatient (CLI) | payer BC ==
[~2017-01-28] MED LIST changes: -IBUP-103 PO; -OXYC-57 PO
== END | disposition home or self-care (01) ==
LOC: C.PAPS 14:49
PROVIDERS: ATTEND Obstetrics & Gynecology
DX: R87.612 Low grade squamous intraepithelial lesion on cytologic smear of cervix (LGSIL) (principal)